=== PATIENT | male | born 1950 | race Caucasian/White ===

== ENCOUNTER → 2025-09-28 09:14 | Outpatient (REF) | payer MEDICARE, OTHER, SELFPAY | LOC: RCS 09:14 | PROVIDERS: ATTENDING PHYSICIAN Nurse Practitioner; FAMILY PHYSICIAN Family Medicine | DX: R42 Dizziness and giddiness (principal) | CPT/HCPCS: 93306 ==

== ENCOUNTER → 2025-10-13 06:51 | Outpatient (REF) | payer MEDICARE, OTHER, SELFPAY ==
[2025-10-13 07:52] LABS: Hematocrit 48.7 % (39.0-52.0); Hemoglobin 16.2 g/dL (13.0-18.0); Mean Corp Hgb Conc. 33.3 g/dL (33.0-37.0); Mean Corpuscular Volume 97.0 fL (80.0-94.0); Nucleated Red Blood Cells % 0 % (-); Platelet Count 199 10^3/uL (130-400); Red Cell Dist. Width 13.2 % (11.5-14.5)
[2025-10-13 08:43] LABS: ALT (SGPT) 25 U/L (0-50); AST (SGOT) 29 U/L (17-59); Albumin 4.4 g/dl (3.5-5.0); Alkaline Phosphatase 64 U/L (38-126); Blood Urea Nitrogen 22 mg/dl (9-20); Calcium 9.4 mg/dl (8.4-10.2); Carbon Dioxide 27 mmol/L (22-30); Chloride 106 mmol/L (98-107); Glucose 94 mg/dl (70-99); HDL Cholesterol 48 mg/dl; LDL Cholesterol, Calculated 186 mg/dl; Potassium 4.8 mmol/L (3.5-5.1); Sodium 139 mmol/L (135-145); Total Protein 7.4 g/dl (6.3-8.2); Very Low Density Lipoprotein 19 mg/dl (0-30); eGFR > 60.00
[2025-10-13 08:58] LABS: PSA, Total - Screen 3.57 ng/ml (0.0-4.0); TSH 2.88 uIU/ml (0.47-4.68)
== END ==
LOC: RAD 06:51
PROVIDERS: ATTENDING PHYSICIAN Specialist; FAMILY PHYSICIAN Family Medicine
DX: Q61.01 Congenital single renal cyst (principal); E78.00 Pure hypercholesterolemia, unspecified; Z12.5 Encounter for screening for malignant neoplasm of prostate; Z00.00 Encounter for general adult medical examination without abnormal findings; G62.9 Polyneuropathy, unspecified
CPT/HCPCS: 36415; 76775; 80053; 80061; 84443; 85025; G0103